=== PATIENT | female | born 1970 | race African-American/Black ===

== ENCOUNTER 2021-09-23 23:44 | Emergency (ER) | payer OTHER ==
[2021-09-23] MEDS ORDERED: Boostrix 0.5 ML (Tdap) VIAL ONE (23:50)
[2021-09-24] MEDS ORDERED: Acetaminophen 500 MG TAB ONE (00:10)
[2021-09-24] MEDS ORDERED: Bacitracin 1 PK ONE (00:33)
== END 2021-09-24 00:43 | disposition home or self-care (01) ==
LOC: CSHERS 23:44
DX: S61.213A Laceration without foreign body of left middle finger without damage to nail, initial encounter (principal); Z23 Encounter for immunization; W23.0XXA Caught, crushed, jammed, or pinched between moving objects, initial encounter
CPT/HCPCS: 90471; 90715

== ENCOUNTER 2022-03-21 10:20 | Emergency (ER) | payer SELFPAY ==
[2022-03-21 10:49] LABS: Bilirubin Neg (Negative); Blood, Urine Negative (Negative); Clarity Clear (Clear); Glucose, Urine (Dipstick) Normal (Negative); Ketone, Urine Negative (Negative); Leukocyte Negative (Negative); Nitrite Negative (Negative); Protein, Urine (Dipstick) Negative (Neg-Trace); Urobilinogen Normal mg/dL (Less than 2); pH, Urine 6.5 (5.0-9.0)
[2022-03-21 10:56] LABS: Pregnancy Test - Urine (BHCG) Negative (Negative); Pregu Control Background? CLEAR/WHITE (CLR/WHITE); Pregu Control Bar Appear? YES (CONTROL BAR)
[2022-03-21] MEDS ORDERED: Ketorolac Tromethamine 30 MG/ML VIAL ONE (10:56)
== END 2022-03-21 11:35 | disposition home or self-care (01) ==
LOC: CSHERS 10:20
DX: R05.9 Cough, unspecified (principal); R07.89 Other chest pain
CPT/HCPCS: 71045; 81003; 81025; 93005; 96372; J1885

== ENCOUNTER 2022-08-27 13:22 | Emergency (ER) | payer BC ==
[2022-08-27] MEDS ORDERED: Ketorolac Tromethamine 30 MG/ML VIAL ONE (14:15)
[2022-08-27] MEDS ORDERED: Metoclopramide HCl 10 MG TAB ONE (14:15)
[2022-08-27] MEDS ORDERED: Acetaminophen 500 MG TAB ONE (14:15)
[2022-08-27 15:09] LABS: SARS-CoV-2 NAA Rapid Test DETECTED (NotDetected)
== END 2022-08-27 15:53 | disposition home or self-care (01) ==
LOC: CSHERS 13:22
DX: U07.1 COVID-19 (principal)
CPT/HCPCS: 96372; 99283; J1885

== ENCOUNTER 2022-12-10 21:51 | Emergency (ER) | payer BC ==
[2022-12-10 22:15] LABS: Bilirubin Neg (Negative); Blood, Urine 250 (Negative); Clarity Cloudy (Clear); Glucose, Urine (Dipstick) Normal (Negative); Ketone, Urine Negative (Negative); Leukocyte 500 (Negative); Nitrite Positive (Negative); Protein, Urine (Dipstick) 100 mg/dl (Neg-Trace); pH, Urine 6.5 (5.0-9.0)
[2022-12-10 22:29] LABS: RBC/HPF Greater than 50 HPF (0-3)
[2022-12-10 22:32] LABS: Renal Epithelial 0-3 HPF (None Seen); Squamous Epithelial 0-3 HPF (0-3); WBC/HPF Greater than 50 HPF (0-3)
[2022-12-10 22:33] LABS: Bacteria/HPF 2+ HPF (None Seen); Epithelial Cast 0-3 LPF (None Seen)
[2022-12-10] MEDS ORDERED: cefTRIAXone\\ROCEPHIN 1 GM VIAL ONE (22:46)
[2022-12-10] MEDS ORDERED: Ketorolac Tromethamine 30 MG/ML VIAL ONE (22:46)
[2022-12-10] MEDS ORDERED: Lidocaine 1% (PF) 30 ML VIAL ONE (22:46)
== END 2022-12-10 23:02 | disposition home or self-care (01) ==
LOC: CSHERS 21:51
DX: N30.01 Acute cystitis with hematuria (principal)
CPT/HCPCS: 81003; 81015; 87077; 87086; 87186; 96372; 99283; J0696; J1885; J2001

== ENCOUNTER 2023-10-09 20:53 | Emergency (ER) | payer BC ==
[2023-10-09] MEDS ORDERED: Acetaminophen 500 MG TAB ONE (21:17)
== END 2023-10-09 22:14 | disposition home or self-care (01) ==
LOC: CSHERS 20:53
DX: S93.402A Sprain of unspecified ligament of left ankle, initial encounter (principal); W18.30XA Fall on same level, unspecified, initial encounter

== ENCOUNTER 2024-01-31 19:01 | Emergency (ER) | payer BC ==
[2024-01-31] MEDS ORDERED: Bupivacaine PF 0.5% 30 ML VIAL ONE (20:23)
[2024-01-31] MEDS ORDERED: Lidocaine 1% PF 5 ML VIAL ONE (20:23)
== END 2024-01-31 21:40 | disposition home or self-care (01) ==
LOC: CSHERS 19:01
DX: S67.192A Crushing injury of right middle finger, initial encounter (principal); S61.212A Laceration without foreign body of right middle finger without damage to nail, initial encounter; W23.1XXA Caught, crushed, jammed, or pinched between stationary objects, initial encounter
CPT/HCPCS: J0665

== ENCOUNTER 2024-06-17 21:36 | Emergency (ER) | payer BC, OTHER | END 2024-06-17 22:23 | disposition home or self-care (01) | LOC: CSHERS 21:36 | DX: S61.431A Puncture wound without foreign body of right hand, initial encounter (principal); W46.1XXA Contact with contaminated hypodermic needle, initial encounter | CPT/HCPCS: 99282 ==